=== PATIENT | male | born 1985 | race Caucasian/White ===

== ENCOUNTER 2019-03-25 12:45 | Emergency (ER) | payer MEDICAID ==
[~2019-03-25] VITALS: Ht 170.2 cm; Wt 78.2 kg
[2019-03-25 12:50] VITALS: BP 132/93
[2019-03-25] MEDS ORDERED: HYDROcodone/APAP 5/325 TABLET PO ONE (13:30)
[2019-03-25] MEDS ORDERED: HYDROcodone/APAP 5/325 TABLET ONE (13:33)
== END 2019-03-25 13:47 | disposition home or self-care (01) ==
LOC: ED 13:38
DX: K02.9 Dental caries, unspecified (principal); K08.89 Other specified disorders of teeth and supporting structures
CPT/HCPCS: 99283